=== PATIENT | male | born 1980 | race Caucasian/White ===

== ENCOUNTER 2020-06-19 11:39 | Day surgery (SDC) | payer OTHER, BC ==
[2020-06-13 14:39] LABS: BASOPHILS % (AUTO) 0.3 % (0-1); EOSINOPHILS # (AUTO) 0.1 X10'3 (0-0.9); EOSINOPHILS % (AUTO) 1.2 % (0-6); LYMPHOCYTES # (AUTO) 1.8 X10'3 (1.1-4.8); LYMPHOCYTES % (AUTO) 23.4 % (21-51); MEAN CORPUSCULAR HEMOGLOBIN 31.7 PG (27.0-31.0); MEAN CORPUSCULAR VOLUME 93.2 FL (78-98); MEAN PLATELET VOLUME 7.3 FL (7.4-10.4); MONOCYTES # (AUTO) 0.7 X10'3 (0-0.9); MONOCYTES % (AUTO) 8.6 % (2-12); NEUTROPHILS # (AUTO) 5.1 X10'3 (1.8-7.7); NEUTROPHILS % (AUTO) 66.5 % (42-75); PRE OP HEMATOCRIT 48.2 % (42.0-52.0); PRE OP HEMOGLOBIN 16.4 g/dL (14.0-17.9); PRE OP PLATELET COUNT 329 X10'3 (140-440); RED BLOOD COUNT 5.17 X10'6 (4.70-6.10); RED CELL DISTRIBUTION WIDTH 12.8 % (11.5-14.5)
[2020-06-13 14:55] LABS: ALBUMIN 4.1 G/DL (3.4-5.0); ALBUMIN/GLOBULIN RATIO 1.1 (1.1-1.5); ALKALINE PHOSPHATASE 49 IU/L (46-116); BLOOD UREA NITROGEN 15 MG/DL (7-18); BUN/CREATININE RATIO 16.7 (5.4-32.0); CALCIUM 9.7 MG/DL (8.5-10.1); CHLORIDE 104 MMOL/L (99-107); PRE OP ALT 66 U/L (30-65); PRE OP ANION GAP 8 (8-16); PRE OP AST 60 U/L (10-37); PRE OP GLUCOSE 103 MG/DL (70-104); PRE OP POTASSIUM 3.9 MMOL/L (3.4-5.1); PRE OP SODIUM 138 MMOL/L (135-145); TOTAL CARBON DIOXIDE 26.4 MMOL/L (24-32); eGFR > 90 ML/MIN
[2020-06-13 15:15] LABS: D-DIMER < 0.19 MG/L FEU (0-0.50)
[~2020-06-19] VITALS: Ht 175.3 cm; Wt 102.1 kg
[~2020-06-19 11:39] MED LIST: ceFAZolin 2gm in dextrose, iso 50 ML IV ONE; famotidine 20mg tablet PO ONE; ringers solution, lacted 1,000 ML IV SCH
[2020-06-19 12:00] VITALS: BP 135/90
[2020-06-19] MEDS ORDERED: LIDOcaine 1% 30ml preserv. free vial ONE (12:19)
[2020-06-19] MEDS ORDERED: BUPIVACAINE liposomal/PF 13.3 MG/ML vial IM ONE (12:20)
[2020-06-19] MEDS ORDERED: BUPIVAcaine/PF 2.5 mg/ml (0.25%) 30ml vial ONE (12:20)
[2020-06-19] MEDS ORDERED: BUPIVAcaine/PF 2.5mg/ml (0.25%) 10ml vial ONE (12:20)
[2020-06-19] MEDS ORDERED: CLON0.3T PO (12:53)
[2020-06-19] MEDS ORDERED: BACL-11 PO (12:53)
[2020-06-19] MEDS ORDERED: fentaNYL/PF 50MCG/1 ML 2ML syringe ONE (14:06)
[2020-06-19] MEDS ORDERED: midazolam 2 mg/2 ml injection ONE (14:07)
[2020-06-19] MEDS ORDERED: rocuronium 10mg/ml inj IV ONE (14:27)
[2020-06-19] MEDS ORDERED: dexamethasone sod phosphate 4mg/ml inj. ONE (14:27)
[2020-06-19] MEDS ORDERED: propofol inj 20 ML IV ONE (14:27)
[2020-06-19] MEDS ORDERED: proCHLORperazine 10 MG/2 ml inj IV PRN (15:00)
[2020-06-19] MEDS ORDERED: morphine 2 MG/ML inj. syringe IV PRN (15:00)
[2020-06-19] MEDS ORDERED: morphine 4 MG/ML inj SYRINge IV PRN (15:00)
[2020-06-19] MEDS ORDERED: meperidine/PF 25mg/ml syringe IV PRN ×3 (15:00)
[2020-06-19] MEDS ORDERED: ondansetron/PF 4mg/2ml inj IV PRN (15:00)
[2020-06-19] MEDS ORDERED: ringers solution, lacted 1,000 ML IV SCH (15:00)
[2020-06-19] MEDS ORDERED: ondansetron/PF 4mg/2ml inj ONE (15:17)
[2020-06-19] MEDS ORDERED: neostigmine methylsulfate 1 MG/ML 10ml vial ONE (15:19)
[2020-06-19] MEDS ORDERED: glycopyrrolate 0.2mg/ml inj ONE (15:19)
[2020-06-19 15:35] VITALS: BP 164/99
--- NOTE | 2020-06-19 15:35 | NUR ---
Received from OR via [facility] , accompanied by Anesthesiologist PHIL and report given by Anesthesiolgist. PATIENT WITH 20GP IV IN LEFT UE RUNNING LR AT 100. DENIES PAIN AT THIS TIME. 4 ABDOMINAL LAP SITES PRESNET. 10L MASK ON WITH 100% SATURATIONS. Addendum: 06/19/20 at 1550 by Gregory Gutiérrez RN, RN Amended: Links added.
[2020-06-19 15:45] VITALS: BP 174/97
[2020-06-19] MEDS ORDERED: oxyCODONE/APAP 5-325mg tablet PO PRN ×2 (15:50)
[2020-06-19 15:55] VITALS: BP 173/104
[2020-06-19 16:05] VITALS: BP 173/105
[2020-06-19 16:15] VITALS: BP 149/104
--- NOTE | 2020-06-19 16:25 | NUR ---
PATIENT AND FAMILY AND THEY HAVE VERBALIZED UNDERSTANDING, OPPORTUNITY TO ASK QUESTIONS GIVEN AND PATIENT COMFORTABLE WITH DC. IV TAKEN OUT WITHOUT COMPLICATION. PATIENT HAS MET ALL DC CRITERIA FOR DC HOME. I HAVE REVIEWED D/C INSTRUCTIONS WITH OUT VIA WHEELCHAIR WHERE PATIENT WAS TAKEN HOME WITH ALL BELONGINGS. FAMILY GAVE PATIENT TRANSPORT HOME. Addendum: 06/19/20 at 1651 by Gregory Gutiérrez RN, RN Amended: Links added.
== END 2020-06-19 16:25 | disposition home or self-care (01) ==
LOC: PAS 11:39 → EEVIPCON 15:00 → PAS 16:25
PROVIDERS: ATTEND Surgery
DX: K43.6 Other and unspecified ventral hernia with obstruction, without gangrene (principal); K42.9 Umbilical hernia without obstruction or gangrene; I10 Essential (primary) hypertension; Z98.52 Vasectomy status; Z79.899 Other long term (current) drug therapy
CPT/HCPCS: 36415; 49653; 64488; 80053; 82948; 85025; 85379; 93005; C1781; C9290; J1100; J2001; J2175; J2250; J2270; J2405; J2704; J2710; J3010; J3490; J7120; S2900; A4215; A4618